=== PATIENT | female | born 1955 | race Caucasian/White ===

== ENCOUNTER 2020-07-29 10:37 | Emergency (ER) | payer OTHER ==
[2020-07-29] MEDS ORDERED: Aspirin Chewable 81 MG TAB ONE (10:55)
[2020-07-29 11:16] LABS: ALT (SGPT) 13 U/L (8-55); AST (SGOT) 12 U/L (5-34); Albumin 4.5 g/dL (3.4-4.8); Alkaline Phosphatase 79 U/L (40-110); Anion Gap 19 mmol/L (10-20); BUN (Urea Nitrogen) 13 mg/dL (9.8-20.1); Bilirubin, Total 0.4 mg/dL (0.2-1.2); Calc. Creatinine Clearance 0 mL/min (70-130); Calcium 9.7 mg/dL (7.8-10.44); Carbon Dioxide 23 mmol/L (23-31); Chloride 101 mmol/L (98-107); Globulin 3.7 g/dL (2.4-3.5); Glucose 111 mg/dL (80-115); Lipase 59 U/L (8-78); Magnesium 1.9 mg/dL (1.6-2.6); Potassium 3.9 mmol/L (3.5-5.1); Protein, Total 8.2 g/dL (5.8-8.1); Sodium 139 mmol/L (136-145)
[2020-07-29 11:39] LABS: Hemoglobin 14.4 g/dL (12.0-16.0); MDiff Complete? YES; Mean Corpuscular HGB CONC 29.3 g/dL (32.0-36.0); Mean Corpuscular Hemoglobin 26.9 pg (27.0-31.0); Mean Corpuscular Volume 91.8 fL (78.0-98.0); Mean Platelet Volume 8.7 fL (7.4-10.4); Platelet Count 247 thou/uL (130-400); RBC Distribution Width 12.9 % (11.5-14.5); Red Blood Cell (RBC) Count 5.34 mill/uL (4.20-5.40); White Blood Cell (WBC) Count 7.4 thou/uL (4.8-10.8)
[2020-07-29 11:40] LABS: Eosinophils 1 % (0-10); Lymphocytes 33 % (21-51); Monocytes 13 % (0-10); Neutrophil 53 % (42-75); Platelet Morphology Comment Appears Decreased
[2020-07-29] MEDS ORDERED: Nitroglycerin 0.4 MG TAB (25 Tab Bottle) ONE (14:31)
[2020-07-29 14:39] LABS: CKMB 1.3 ng/mL (0-6.6)
[2020-07-29] MEDS ORDERED: Morphine 4 MG/ML VIAL ONE (14:40)
[2020-07-29] MEDS ORDERED: Nitroglycerin 2% Ointment 1 INCH/1 GM Packet ONE (14:41)
[2020-07-29] MEDS ORDERED: Heparin 5,000 UNITS/ML VIAL ONE (15:05)
[2020-07-29] MEDS ORDERED: Heparin 25,000 units/D5W 500 ML ONE (15:08)
[2020-07-29 15:12] LABS: INR-International Normal Ratio 0.9; PTT 29.6 sec (22.9-36.1)
== END 2020-07-29 15:41 | disposition short-term general hospital (02) ==
LOC: NAV ERS 10:37
DX: I20.0 Unstable angina (principal); R07.89 Other chest pain; R94.31 Abnormal electrocardiogram [ECG] [EKG]; R77.8 Other specified abnormalities of plasma proteins; E11.9 Type 2 diabetes mellitus without complications; E78.5 Hyperlipidemia, unspecified; E78.00 Pure hypercholesterolemia, unspecified; Z79.84 Long term (current) use of oral hypoglycemic drugs; Z79.899 Other long term (current) drug therapy
CPT/HCPCS: 71045; 80053; 82553; 83690; 83735; 83880; 84484; 85025; 85610; 85730; 93005; 94760; 96365; 96375; 96376; J1644; J2270